=== PATIENT | female | born 1940 | race Caucasian/White ===

== ENCOUNTER → 2023-12-07 | Outpatient (CLI) | payer MEDICARE ==
[~2023-12-07] MED LIST: BARIUM SULFATE 98% 340 GM PWDR ONE; EZ PAQUE SUSP 12OZ BTL ONE; READI-CAT 2 (BARIUM SULF)(VANILLA SMOOTHIE) 450ML ONE
--- NOTE | 2023-12-07 15:45 | DVH ---
XY SWALLOWING FUNCTION TEST, HISTORY: SWALLOWING DIFFICULTY COMPARISON: None PROCEDURE: Under video fluoroscopic monitoring, the patient's oropharynx and cervical esophagus were observed in the lateral position swallowing barium contrast of varying thickness. A speech pathologis t was present and coordinated the examination. Images were recorded as cine clips. Total fluoroscopic time utilized was 1.2 minutes. FINDINGS: The patient swallowed thin and solid food containing barium contrast. The patient was able to initiate swallowing. Contrast was seen traversing the oropharynx, hypopharynx and cervical esophagus without obstruction. Laryngeal penetration was visualized with thin barium. T here was delayed passage of contrast through the hypopharynx. IMPRESSION: Laryngeal penetration was visualized with thin barium. There was delayed passage of contrast through the hypopharynx. Please refer to the speech pathologist's note from today's date for additional information and treatm ent recommendations.
== END | disposition home or self-care (01) ==
LOC: XYW 14:51
PROVIDERS: ATTEND Internal Medicine
DX: R13.10 Dysphagia, unspecified (principal)
CPT/HCPCS: 74230